=== PATIENT | female | born 1965 | race Caucasian/White ===

== ENCOUNTER 2019-07-11 14:08 | Emergency (ER) | payer OTHER ==
--- NOTE | 2019-07-11 15:51 | ED ---
Palpitations / Dysrhythmia - HPI Summary HPI Summary: Patient is a 53 y/o F presenting to the ED for a chief complaint of palpitations and chest pain that began on 07/10/19. Patient is present with her son. Patient describes the palpitations as skipping beats. Prior to palpitation onset, patient had taken her 3rd dose of a tapering Medrol dose pack prescribed by an orthopedic surgeon. She is taking the steroid for a cervical herniated disc. She felt a warm and tremulous sensation before palpitation onset. Soon after the palpitations began, patient felt anxiety which she believes worsened her symptoms. Currently, she continues to a tremulous sensation. No aggravating or alleviating factors are reported. Patient takes 50 mg metoprolol TID. PMHx is significant for PVC arrhythmia. She is scheduled for a cardiac ablation on . Dr. Kedar Alarcon in [place], [place] is her head of physics. Patient is visiting her son in [place]. - History of Current Complaint Chief Complaint: EDDysrhythmPalp Time Seen by Provider: 07/11/19 15:43 Hx Obtained From: Patient Onset/Duration: Sudden Onset, Still Present Severity Initially: Moderate Severity Currently: Moderate Character: Skipped Beats Aggravating: Nothing Alleviating: Nothing Associated Signs & Symptoms: Chest Pain - Allergy/Home Medications Allergies/Adverse Reactions: Allergies Allergy/AdvReac Type Severity Reaction Status Date / Time morphine Allergy Itching Verified 07/11/19 16:19 Home Medications: Home Medications Metoprolol Succinate 50 mg PO DAILY 07/11/19 [History Confirmed 07/11/19] PMH/Surg Hx/FS Hx/Imm Hx Previously Healthy: Yes Cardiovascular History: Reports: Other Cardiovascular Problems/Disorders - PVC arrhythmia Sensory History: Denies: Hx Legally Blind, Hx Deafness Opthamlomology History: Denies: Hx Legally Blind EENT History: Denies: Hx Deafness Neurological History: Reports: Other Neuro Impairments/Disorders - Cervical herniated disc - Surgical History Surgical History: None Surgery Procedure, Year, and Place: None Infectious Disease History: No Infectious Disease History: Denies: Traveled Outside the [place] in Last 30 Days - Family History Known Family History: Negative: Cardiac Disease, Hypertension, Diabetes, Renal Disease - Social History Occupation: Employed Full-time Lives: With Family Alcohol Use: None Hx Substance Use: No Substance Use Type: Reports: None Hx Tobacco Use: No Smoking Status (MU): Never Smoked Tobacco Review of Systems Positive: Palpitations, Chest Pain Neurological/Mental Status: Other - Positive tremors Positive: Anxious All Other Systems Reviewed And Are Negative: Yes Physical Exam - Summary Physical Exam Summary: Constitutional: Well-developed, Well-nourished, Alert. (-) Distressed Skin: Warm, Dry HENT: Normocephalic; Atraumatic Eyes: Conjunctiva normal Neck: Musculoskeletal ROM normal neck. (-) JVD, (-) Stridor, (-) Tracheal deviation Cardio: Rhythm regular, rate normal, Heart sounds normal; Intact distal pulses; The pedal pulses are 2+ and symmetric. Radial pulses are 2+ and symmetric. Pulmonary/Chest wall: Effort normal. (-) Respiratory distress, (-) Wheezes, (-) Rales Abd: Soft, (-) tenderness, (-) Distension, (-) Guarding, (-) Rebound Musculoskeletal: (-) Edema Neuro: Alert, Oriented x3 Psych: Mood and affect Normal Triage Information Reviewed: Yes Vital Signs On Initial Exam: Initial Vitals Temp Pulse Resp BP Pulse Ox 97.2 F 76 16 160/88 100 07/11/19 14:09 07/11/19 14:09 07/11/19 14:09 07/11/19 14:09 07/11/19 14:09 Vital Signs Reviewed: Yes Procedures - Sedation Patient Received Moderate/Deep Sedation with Procedure: No Diagnostics - Vital Signs Vital Signs Temp Pulse Resp BP Pulse Ox 07/11/19 14:09 97.2 F 76 16 160/88 100 - Laboratory Result Diagrams: 07/11/19 16:06 07/11/19 16:06 Lab Statement: Any lab studies that have been ordered have been reviewed, and results considered in the medical decision making process. - EKG 14:22 Cardiac Rate: NL - 63 BPM EKG Rhythm: Sinus Rhythm ST Segment: Normal Ectopy: None Summary of EKG Findings: An EKG at 14:22 reveals normal sinus rhythm with 63 BPM , nml axis, nml intervals. No STEMI. No acute changes. Reviewed and interpreted by Dr. Benítez. Re-Evaluation - Re-Evaluation First Eval Re-Evaluation Time: 18:31 Change: Unchanged Comment: At 18:31, patient had 3 PVCs based on transition manager review that were unifocal with no hypotension. Course/Dx - Course Course Of Treatment: Patient is a 53 y/o F presenting to the ED for a chief complaint of palpitations and chest pain that began on 07/10/19. Patient describes the palpitations as skipping beats. Prior to palpitation onset, patient had taken her 3rd dose of a tapering Medrol dose pack prescribed by an orthopedic surgeon. She is taking the steroid for a cervical herniated disc. Soon after the palpitations began, patient felt anxiety which she believes worsened her symptoms. Patient takes 50 mg metoprolol TID. PMHx is significant for PVC arrhythmia. She is scheduled for a cardiac ablation on 07/15/19. On exam, unremarkable findings. All other abnormal lab results are not pertinent to current cc. An EKG at 14:22 reveals normal sinus rhythm with 63 BPM, nml axis, nml intervals. No STEMI. No acute changes. At 18:31, patient had 3 PVCs based on transition manager review that were unifocal with no hypotension. Patient will be discharged with a diagnosis of PVC and palpitaitons. Follow up with PCP in 2-3 days. - Diagnoses Provider Diagnoses: Palpitations, PVC (premature ventricular contraction) Discharge ED - Sign-Out/Discharge Documenting (check all that apply): Patient Departure - Discharge - Discharge Plan Condition: Stable Disposition: HOME Patient Education Materials: Premature Atrial Contractions (ED) Referrals: [facility] [Outside] Additional Instructions: RETURN TO THE EMERGENCY DEPARTMENT FOR CHANGING OR WORSENING SYMPTOMS. Follow up with your primary care physician in 2-3 days. - Billing Disposition and Condition Condition: STABLE Disposition: Home - Attestation Statements Document Initiated by Mitzy: Yes Documenting Scribe: Linnea Davila Provider For Whom Mitzy is Documenting (Include Credential): Kedar Benítez MD Scribe Attestation: Linnea Carson scribed for Kedar Benítez MD on 07/11/19 at 1900. Scribe Documentation Reviewed: Yes Provider Attestation: The documentation as recorded by the Linnea del valle accurately reflects the service I personally performed and the decisions made by me, Kedar Benítez MD Status of Scribe Document: Viewed
[2019-07-11 16:18] LABS: ABS Eosinophils 0.1 10^3/ul (0-0.6); ABS Lymphocytes 1.4 10^3/ul (1.0-4.8); ABS Monocytes 0.6 10^3/ul (0-0.8); Eosinophil % 1.1 %; Hematocrit 39 % (35-47); Hemoglobin 13.4 g/dL (12.0-16.0); Lymphocyte % 27.7 %; Mean Corpuscular HGB Conc 34 g/dL (31-36); Mean Corpuscular Hemoglobin 33 pg (27-31); Mean Corpuscular Volume 97 fL (80-97); Mean Platelet Volume 8.9 fL (7.4-10.4); Nucleated Red Blood Cells % 0.1; Platelet Count 183 10^3/uL (150-450); Red Blood Count 4.04 10^6 /uL (3.70-4.87); Red Cell Distribution Width 13 % (10-15); White Blood Count 5.1 10^3/uL (3.5-10.8)
[2019-07-11 16:51] LABS: Activated Partial Thrombo Time 31.3 seconds (26.0-38.0); INR 0.95 (0.82-1.09)
[2019-07-11 16:54] LABS: BUN/Creatinine Ratio 20.6 (8-20); Calcium 9.5 mg/dL (8.6-10.3); EGFR African American 109.9 (>60); EGFR Non-African American 90.9 (>60)
[2019-07-11 18:27] LABS: TSH (Thyroid Stimulating Horm) 0.94 mcIU/mL (0.34-5.60)
[2019-07-11 18:29] LABS: Free T4 0.79 ng/dL (0.61-1.12)
[2019-07-11 18:38] VITALS: BP 152/85
== END 2019-07-11 18:38 | disposition home or self-care (01) ==
LOC: ED 14:08
DX: R00.2 Palpitations (principal); I49.3 Ventricular premature depolarization; Z88.6 Allergy status to analgesic agent; F41.9 Anxiety disorder, unspecified; R07.9 Chest pain, unspecified; Z79.899 Other long term (current) drug therapy; Z86.79 Personal history of other diseases of the circulatory system
CPT/HCPCS: 36415; 80048; 83880; 84439; 84443; 84484; 85025; 85610; 85730; 93005; 99283